=== PATIENT | female | born 1990 | race Caucasian/White ===

== ENCOUNTER 2019-03-10 16:58 | Outpatient (REF) | payer MEDICAID, SELFPAY ==
--- NOTE | 2019-03-10 16:00 | PAPFT_PTH ---
PATIENT: Carson Powell LOC: [facility] U#:[id number] AGE/SX: 28/F ROOM: RE03/10/[address]: Tina Ralph : 1990 BED: DIS: 03/10/2019 SPEC #: [id number] RECD: 03/10/19 18:05 STATUS: DONNA JACOBSEN #: [id number] WINSTON: 03/10/19 16:[address]: Tina Ralph DEPT: [facility] Cytology RECD BY: Myra Norris ENTERED: 03/10/19 18:05 SP TYPE: PAPFT CHRIS DR: None Tissues: 1 - CX/ENDOCX FOR PAP SMEARS Procedures: PAP THIN PREP/UVM Screening Comments: [id number]
== END 2019-03-10 17:18 ==
LOC: LBN 16:58
PROVIDERS: Visit Provider Obstetrics & Gynecology Gynecology
DX: Z12.4 Encounter for screening for malignant neoplasm of cervix (principal)
CPT/HCPCS: 88142

== ENCOUNTER 2020-07-07 02:56 | Outpatient (CLI) | payer MEDICAID, SELFPAY ==
[2020-07-07 11:45] LABS: Kit/Specimen SENT
[2020-07-07 11:49] LABS: Abs Immature Grans 0.03 10^3/uL (0.0-0.06); Absolute Basophil Count 0.03 10^3/uL (0.0-0.2); Absolute Eosinophil Count 0.12 10^3/uL (0.0-0.7); Absolute Monocyte Count 0.56 10^3/uL (0.1-0.8); Absolute Neutrophil Count 7.01 10^3/uL (1.2-6.7); Basophils % 0.3; Eosinophils % 1.3; HCT 40.2 % (36.0-46.0); HGB 13.8 g/dL (11.2-15.7); Immature Grans % 0.3; Lymphocytes % 17.1; MCH 29.6 pg (27.0-33.0); MCHC 34.3 % (32.0-36.0); MCV 86.3 fL (80-95); MPV 11.1 fL (8.0-11.0); Nucleated RBC 0 %; Platelet Count 231 10^3/uL (130-400); RBC 4.66 10^6/uL (3.93-5.22); RDW 12.6 % (11.7-14.6); RDW-SD 39.6 fL; WBC 9.35 10^3/uL (4.4-10.8)
[2020-07-07 12:37] LABS: TSH (W/Ref FT4) 1.93 uIU/mL (0.36-3.74)
[2020-07-07 12:45] LABS: *AMPHETAMINES SCREEN URINE Negative (Negative); *BARBITURATES SCREEN URINE Negative (Negative); *BENZODIAZEPINES SCREEN URINE Negative (Negative); Cannabinoids THC Negative (Negative); Cocaine Screen,Urine Negative (Negative); METHADONE URINE SCREEN Negative (Negative); OPIATES URINE SCREEN Negative (Negative)
[2020-07-07 12:48] LABS: Tricyclic Antidepressants Negative (Negative)
[2020-07-08 10:23] LABS: Hepatitis B Surface Ag Negative (Negative)
[2020-07-08 10:42] LABS: Hepatitis C Ab w Rflx HCV PCR Negative (Negative)
[2020-07-08 10:55] LABS: Varicella IgG Antibody Negative (See Note)
[2020-07-08 11:00] LABS: Rubella IgG Ab (UVM) Positive (See Note)
[2020-07-08 11:01] LABS: HIV-1/2 Ag & Ab Screen Negative (Negative)
[2020-07-08 15:01] LABS: Chlamydia Result Negative (Negative); GC Result Negative (Negative)
[2020-07-08 16:07] LABS: Syphilis Total Ab w/Reflex Nonreactive (Nonreactive)
[2020-07-13 10:57] LABS: Buprenorphine Negative ng/mL (Cutoff: 5.0)
[2020-07-17 23:25] LABS: Result Summary NEGATIVE; Specimen WB Whole Blood
== END 2020-07-07 02:57 | disposition home or self-care (01) ==
LOC: LBO 02:56
PROVIDERS: Visit Provider Advanced Practice Midwife
DX: Z34.91 Encounter for supervision of normal pregnancy, unspecified, first trimester (principal); R53.83 Other fatigue; Z11.3 Encounter for screening for infections with a predominantly sexual mode of transmission; Z11.4 Encounter for screening for human immunodeficiency virus [HIV]; Z01.84 Encounter for antibody response examination; Z36.89 Encounter for other specified antenatal screening; Z11.59 Encounter for screening for other viral diseases
CPT/HCPCS: 80307; 86787; 86803; 86850; 86900; 86901; 87340; 87389; 87491; 87591; 81220; 84443; 85025; 86762; 86780; 87086

== ENCOUNTER 2020-08-11 01:15 | Outpatient (CLI) | payer MEDICAID, SELFPAY ==
--- NOTE | 2020-08-11 07:00 | DI.US_ITS ---
Exam(s) US OB 2-3 TRIMESTER EXAM: US OB 2-3 TRIMESTER CLINICAL HISTORY: 18 wk anatomy survey,Z3A.13. TECHNIQUE: Transabdominal obstetrical ultrasound was performed. COMPARISON: None this gestation FINDINGS: There is a single viable intrauterine gestation with cardiac activity identified-145 bpm. Amniotic fluid: There is a normal amount of amniotic fluid. Placental location: The placenta is posterior grade 1,with no evidence of placenta previa.This is fro m the tip of the placenta to the internal cervical os is 4.2 cm on today's study. ANATOMY: A 3 vessel umbilical cord is seen. A four-chamber cardiac view was obtained. Right and left ventricular outflow tracts were imaged. There are no obvious abnormalities of the spinal column evident. There is no obvious abnormal ity of the anterior abdominal wall. stomach and urinary bladder are identified and there is no evidence of hydronephrosis. No abnormalities of the upper lip region are identified. No evidence of choroid plexus cysts i n the brain. Dating parameters place this at approximately 18 weeks gestational age. BPD measures 18 weeks and 1 day HC measures 18 weeks and 0 days AC measures 18 weeks and 0 days FL measures 18 weeks and 0 days Estimated weight is 219 gm-0 pounds, 8 ounces Fetus is at the 44th percentile on the Hadlock scale. IMPRESSION:: Single viable intrauterine gestation which is approximately 18 weeks gestational age, i mplying an JESENIA of January 12, 2021. There are no obvious anomalies evident on today's study. The placenta is posterior with no evidence of placenta previa. There is a normal amount of amniotic fluid. DATA REPOSITORY:
== END 2020-08-11 01:35 ==
PROVIDERS: Visit Provider Advanced Practice Midwife
DX: Z34.92 Encounter for supervision of normal pregnancy, unspecified, second trimester (principal); Z3A.18 18 weeks gestation of pregnancy
CPT/HCPCS: 76805

== ENCOUNTER 2020-10-21 01:34 | Outpatient (CLI) | payer MEDICAID, SELFPAY ==
[2020-10-21 12:16] LABS: HCT 34.8 % (36.0-46.0); HGB 11.4 g/dL (11.2-15.7); MCHC 32.8 % (32.0-36.0); MCV 88.5 fL (80-95); MPV 10.7 fL (8.0-11.0); Platelet Count 213 10^3/uL (130-400); RBC 3.93 10^6/uL (3.93-5.22); RDW 11.9 % (11.7-14.6); RDW-SD 38.6 fL; WBC 9.35 10^3/uL (4.4-10.8)
[2020-10-21 12:20] LABS: Glucose,1 Hr (Glucola) 85 mg/dL (80-140)
== END 2020-10-21 01:35 | disposition home or self-care (01) ==
LOC: LBO 01:34
PROVIDERS: Visit Provider Advanced Practice Midwife
DX: O36.0130 Maternal care for anti-D [Rh] antibodies, third trimester, not applicable or unspecified (principal); Z3A.28 28 weeks gestation of pregnancy
CPT/HCPCS: 36415; 82950; 85027; 86850; 90384

== ENCOUNTER 2020-12-16 13:48 | Outpatient (REF) | payer MEDICAID, SELFPAY ==
[2020-12-16 16:29] LABS: *AMPHETAMINES SCREEN URINE Negative (Negative); *BARBITURATES SCREEN URINE Negative (Negative); *BENZODIAZEPINES SCREEN URINE Negative (Negative); Cannabinoids THC Negative (Negative); Cocaine Screen,Urine Negative (Negative); METHADONE URINE SCREEN Negative (Negative); OPIATES URINE SCREEN Negative (Negative)
[2020-12-16 16:33] LABS: Tricyclic Antidepressants Negative (Negative)
[2020-12-23 16:49] LABS: Buprenorphine Negative ng/mL (Cutoff: 5.0); Norbuprenorphine Negative ng/mL (Cutoff: 2.5)
== END 2020-12-16 13:49 | disposition home or self-care (01) ==
LOC: LBN 13:48
PROVIDERS: Visit Provider Advanced Practice Midwife
DX: Z34.93 Encounter for supervision of normal pregnancy, unspecified, third trimester (principal); Z36.85 Encounter for antenatal screening for Streptococcus B; Z3A.24 24 weeks gestation of pregnancy
CPT/HCPCS: 80307; 87081

== ENCOUNTER 2021-01-06 23:21 | Inpatient (IN) | payer MEDICAID, SELFPAY ==
[2021-01-07] VITALS (21 sets, daily range): BP systolic 93–179; BP diastolic 50–78; PULSE 75–117; RESP 16–20; TEMP 36.4–37; O2SAT 97–98
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
[2021-01-07 00:41] LABS: HCT 33.8 % (36.0-46.0); HGB 10.8 g/dL (11.2-15.7); MCH 25.4 pg (27.0-33.0); MCV 79.3 fL (80-95); MPV 11.9 fL (8.0-11.0); Platelet Count 241 10^3/uL (130-400); RBC 4.26 10^6/uL (3.93-5.22); RDW 13.3 % (11.7-14.6); RDW-SD 38.3 fL; WBC 11.49 10^3/uL (4.4-10.8)
[2021-01-07] MEDS: Penicillin G POT. 5,000,000 UNITS in Normal Saline 100 ML 200 UNITS IVPB (01:03)
[2021-01-07 01:08] LABS: Source Nasal/Nares
[2021-01-07 01:59] LABS: COVID-19 PCR Negative (Negative)
[2021-01-07] MEDS: Nalbuphine 10 MG/ML AMP SC ×2 (02:28→03:27)
[2021-01-07] MEDS: Penicillin G POT. 3,000,000 UNITS in Normal Saline 50 ML 100 UNITS IVPB (04:47)
[2021-01-07] MEDS: Oxytocin/Normal Saline 30 UNIT/500 ML BAG 95 UNITS IV (05:25)
--- NOTE | 2021-01-07 05:52 | W.PM.OBNL1 ---
Date of service: 01/07/21 Time of Service: 04:30 Pelvic Exam Dilation: 8 Effacement (%): 90 station: -1 Position: SUMAYA Cervix Position: mid Consistency: soft Vaginal Exam Presentation: Cephalic Pooling: Negative Contractions Monitor Mode: External Contraction Frequency(min): every 2-3 Contraction Duration(sec): 60 Intensity: Strong Fetus A Monitor: External (US) Heart Rate Baseline: 118 Presentation: Cephalic Variability: Minimal (1-5 BPM) Categories: Category II FHR Rhythm: Regular Accelerations: Absent Decelerations: None Amniotic Membrane Status: Intact Assessment Note: decreased variability after nubain Assessment and Plan Assessment and plan (1) Group B Streptococcus carrier, +RV culture, currently : Status: Acute (2) Spontaneous onset of labor: Status: Acute Assessment and plan: anticipate Objective Abnormal lab results 01/07/21 Range/Units 00:35 WBC 11.49 H (4.4-10.8) 10^3/uL Hgb 10.8 L (11.2-15.7) g/dL Hct 33.8 L (36.0-46.0) % MCV 79.3 L (80-95) fL MCH 25.4 L (27.0-33.0) pg MPV 11.9 H (8.0-11.0) fL Temp Pulse Resp BP Pulse Ox 98.1 F 89 20 117/55 L 98 01/07/21 05:34 01/07/21 05:51 01/07/21 02:32 01/07/21 05:51 01/07/21 03:24 Laboratory Results WBC 11.49 10^3/uL (4.4-10.8) H 01/07/21 00:35 RBC 4.26 10^6/uL (3.93-5.22) 01/07/21 00:35 Hgb 10.8 g/dL (11.2-15.7) L 01/07/21 00:35 Hct 33.8 % (36.0-46.0) L 01/07/21 00:35 MCV 79.3 fL (80-95) L 01/07/21 00:35 MCH 25.4 pg (27.0-33.0) L 01/07/21 00:35 MCHC 32.0 % (32.0-36.0) 01/07/21 00:35 RDW 13.3 % (11.7-14.6) 01/07/21 00:35 Plt Count 241 10^3/uL (130-400) 01/07/21 00:35 MPV 11.9 fL (8.0-11.0) H 01/07/21 00:35 COVID-19 Source Nasal/Nares 01/07/21 00:55 SARS-CoV-2 (PCR) Negative (Negative) 01/07/21 00:55 Patient ABO/Rh A Negative 01/07/21 00:35 Antibody Screen POSITIVE 01/07/21 00:35 Antibody Identification Anti-D 01/07/21 00:35 Subjective Patient Reports: New Complaints Interval history since last seen: Received two doses of nubain sc for pain with good relief. She requested more pain medication and was examined and found to be 8 cms/-1. She was moved to hands and knees position for comfort and back massage was provided. Results Hemoglobin/Hematocrit: Hgb 10.8 g/dL (11.2-15.7) L 01/07/21 00:35 Hct 33.8 % (36.0-46.0) L 01/07/21 00:35 Abnormal Lab Findings: Abnormal Labs 01/07/21 00:35 WBC 11.49 H Hgb 10.8 L Hct 33.8 L MCV 79.3 L MCH 25.4 L MPV 11.9 H
--- NOTE | 2021-01-07 06:03 | OBVDS_ITS ---
Date of service: 01/07/21 Time of Service: 06:03 OB Labor/ Delivery Information Baby A Delivery Delivery Method: Spontaneaous Presentation: Cephalic Vertex Position: Right Occipital Anterior Cord Description-Baby A: 3 Vessels Amniotic Fluid: Clear Estimated Blood Loss: 200 Delivery Outcome: Liveborn Transferred: Remains with Mother Note: FHTs 118 during first stage of labor. FHTs 120 in second stage. Decreased variability after receiving nubain. Posiitve response to scalp stimulation. Progressed to full dilation and began pushing. Second stage huddle was done. Spontaneous delivery of infant delivered in SUMAYA position with mother in hands and knees. Baby was placed on mother's abdomen and dried and stimulated. Spontaneous cry. Cord was clamped and cut by the baby's father. The placenta delivered spontaneously and appears to by intact with a three vessel cord. Pitocin 30 U IV was administered after delivery of the placenta. The perineum was inspected and is intact. The baby did breastfeed. After delivery, Mother and baby and father of the baby were stable and bonding well in the delivery room and there were no complications. Providers Nurse Cumulative Effects Analyst: Yary Ring Nurse: Jacquelyn Lara Nurse: Saadia Agudelo Labor/Delivery Information Number of Babies in Womb: 1 Steroids Given: None Reason Steroids Not Administered: N/A Group Beta Strep: Positive Antibiotics Administered: Yes Number of Doses of Antibiotics: 2 Rubella Status: Immune Blood Type: A- Varicella Immunity: Nonimmune Medication in Delivery: [id number] Born En Route: No Maternal Complications: None Shoulder Dystocia: No Stages of Labor Onset of Labor Date: 01/06/21 Onset of Labor Time: 20:00 Complete Dilatation Date: 01/07/21 Complete Dilatation Time: 04:54 Labor - Stage 1 Duration: 24 hours and 0 minutes ROM Baby A: 01/07/21 ROM Baby A: 05:03 ROM Total Time- Baby A: [id number] Infant Delivery Date-Baby A: 01/07/21 Infant Delivery Time-Baby A: 05:23 Labor Stage 2 Duration: 29 minutes Placenta Delivery Date-Baby A: 01/07/21 Placenta Delivery Time-Baby A: 05:29 Labor-Stage 3 Duration: 6 minutes Total Length of Labor-Baby A: 9 hours and 23 minutes Placenta Status: Delivered Baby A Gender: Female Gestational Status: Term (39-41.6 wks) Gestational Age in Weeks/Days: 39 Weeks and 2 Days Score-1 Minute Interval(Baby A) Heart Rate-1 minute: 100 BPM or Greater Respiratory Effort- 1 minute: Spontaneous/Strong Cry Muscle Tone-1 minute: Minimal Flexion/Extension Reflex Response-1 minute: Prompt Response Color-1 minute: Pallor or Cyanosis Total Score-1 minute: 7 Score-5 Minute Interval(Baby A) Heart Rate- 5 minute: 100 BPM or Greater Respiratory Effort-5 minute: Spontaneous/Strong Cry Muscle Tone-5 minute: Active Movement Reflex Response-5 minute: Prompt Response Color-5 minute: Bluish Hands or Feet Total Score- 5 minute: 9
[2021-01-07] MEDS: Ibuprofen 600 MG TAB PO ×3 (06:30→22:43)
[2021-01-07] MEDS: Acetaminophen 325 MG TAB 650 MG PO ×3 (06:31→22:43)
--- NOTE | 2021-01-07 06:33 | NUR.NOTE ---
Nursing Note: Pt delivered vaginally over an intact perineum at 0523. VSS. Pt reports very mild discomfort. FF at U. Moderate lochia. Ice to perineum. Baby skin to skin and pt is experienced breastfeeder, given initiation of tips. Pt has 30 units Pitocin in 500cc bag running per protocol. Oral pain meds given, see MAR. Pt instructed to call before ambulating.
[2021-01-07] MEDS: Docusate Sodium 100 MG CAP PO (16:54)
[2021-01-08 07:32] LABS: HGB 9.9 g/dL (11.2-15.7); MCH 25.4 pg (27.0-33.0); MCHC 31.9 % (32.0-36.0); MCV 79.5 fL (80-95); MPV 11.5 fL (8.0-11.0); Platelet Count 220 10^3/uL (130-400); RDW 13.8 % (11.7-14.6); RDW-SD 39.7 fL; WBC 9.77 10^3/uL (4.4-10.8)
[2021-01-08] MEDS: Docusate Sodium 100 MG CAP PO (08:05)
[2021-01-08] MEDS: Ibuprofen 600 MG TAB PO (08:05)
[2021-01-08] MEDS: Acetaminophen 325 MG TAB 650 MG PO (08:06)
--- NOTE | 2021-01-08 10:05 | W.PM.OBPNV1 ---
Date of service: 01/08/21 Time of Service: 10:05 Assessment and Plan Assessment and plan (1) Term delivered: Status: Acute Assessment and plan: A: PPD#1, nml recovery mild anemia, asymptomatic is off to a good start Satisfied with experience P: Pt desires discharge to home today Advised to begin iron supplement after first BM Will receive Varicella vaccine prior to discharge Plans POP's for BCM until FOB has vasectomy Baby is Rh neg so RhoGam is not indicated F/up at 2 & 6 wks Written instructions reviewed and given to pt Subjective Subjective Patient comments: Pain well controlled, Tolerating diet and Flatus present baby status: Doing well, Nursing well, Rooming in and Strong Bonding Observed [place] feeding status: Exclusively breast feeding Exam Physical Exam Vital signs: Temp Pulse Resp BP Pulse Ox 98.3 F 85 18 99/56 L 97 01/07/21 20:23 01/07/21 20:23 01/07/21 20:23 01/07/21 20:23 01/07/21 16:55 Vital Signs Reviewed: Yes Constitutional Constitutional: no acute distress HEENT Exam HEENT Exam: Normal Neck Exam Neck Exam: Normal Breast Exam Bilateral: Breast Exam: Normal and Soft Nipple Exam: Normal and Uninjured Respiratory Exam Respiratory Exam: Normal Cardiovascular Exam Cardiovascular Exam: Normal Abdominal Exam Abdomen: Other (soft, nontender) Fundal Exam Fundus: Below Umbilicus and Firm Rectal Exam Rectal Exam: Normal Exam Perineum: Intact Extremities Exam Extremity Exam: Normal Back/Spine/Pelvis Exam Back Exam: Normal Skin Exam Skin Exam: Normal Neurological Exam Neurological Exam: Normal Psychiatric Exam Psychiatric Exam: Normal Results Hemoglobin/Hematocrit: Hgb 9.9 g/dL (11.2-15.7) L 01/08/21 07:15 Hct 31.0 % (36.0-46.0) L 01/08/21 07:15
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
[2021-01-08] MEDS: Varicella Virus Vaccine (Live) 0.5 ML SC (12:00)
== END 2021-01-08 13:20 | disposition home or self-care (01) | DRG 806 ==
PROVIDERS: Admitting Provider Advanced Practice Midwife; Visit Provider Advanced Practice Midwife
DX: O99.824 Streptococcus B carrier state complicating childbirth (principal); O36.0930 Maternal care for other rhesus isoimmunization, third trimester, not applicable or unspecified; Z37.0 Single live birth; Z3A.39 39 weeks gestation of pregnancy; Z20.822 Contact with and (suspected) exposure to COVID-19
CPT/HCPCS: 85027; 86850; 86900; 86901; 87635; 86870; J2540; J3490

== ENCOUNTER 2023-09-13 13:06 | Outpatient (REF) | payer MEDICAID, SELFPAY ==
[2023-09-14 12:26] LABS: Chlamydia Result Negative (Negative); GC Result Negative (Negative)
== END 2023-09-13 13:07 | disposition home or self-care (01) ==
LOC: LBN 13:06
PROVIDERS: Visit Provider Obstetrics & Gynecology
DX: Z30.430 Encounter for insertion of intrauterine contraceptive device (principal)
CPT/HCPCS: 87491; 87591

== ENCOUNTER 2023-11-01 12:07 | Outpatient (REF) | payer MEDICAID, SELFPAY ==
--- NOTE | 2023-11-01 11:20 | PAPFT_PTH ---
PATIENT: Carson Powell LOC: [facility] U#:[id number] AGE/SX: 33/F ROOM: RE11/01/[address]: Mima Nichols MD : 1990 BED: DIS: 11/01/2023 SPEC #: [id number] RECD: 11/01/23 13:14 STATUS: DONNA REQ #: [id number] WINSTON: 11/01/23 11:[address]: Mima Nichols DEPT: [facility] Cytology RECD BY: Myra Norris ENTERED: 11/01/23 13:14 SP TYPE: PAPFT OTHR DR: Unknown,Unknown Tissues: 1 - CX/ENDOCX FOR PAP SMEARS Procedures: PAP THIN PREP/UVM Screening HPV DNA PROBE Comments: [id number] (HPV 16 & 18/45)
[2023-11-04 12:47] LABS: Chlamydia Result Negative (Negative); GC Result Negative (Negative)
== END 2023-11-01 12:08 | disposition home or self-care (01) ==
LOC: LBN 12:07
PROVIDERS: Visit Provider Obstetrics & Gynecology
DX: A64 Unspecified sexually transmitted disease (principal); R87.619 Unspecified abnormal cytological findings in specimens from cervix uteri; Z97.5 Presence of (intrauterine) contraceptive device; Z11.3 Encounter for screening for infections with a predominantly sexual mode of transmission
CPT/HCPCS: 87491; 87591; 88142; 87624